=== PATIENT | male | born 1985 | race Caucasian/White ===

== ENCOUNTER 2024-04-02 07:51 | Emergency (ER) | payer OTHER ==
[2024-04-02 08:01] VITALS: BP 148/88; PULSE 96; RESP 20; TEMP 98.6; BMI 30.5
== END 2024-04-02 09:25 | disposition home or self-care (01) ==
LOC: JER 07:51
DX: R00.0 Tachycardia, unspecified (principal)
CPT/HCPCS: 93005; 93010; 99283-25